=== PATIENT | female | born 1960 | race Caucasian/White ===

== ENCOUNTER 2016-11-13 10:56 | Emergency (ER) | payer OTHER ==
[~2016-11-13] VITALS: Ht 165.1 cm; Wt 71.5 kg
[2016-11-13 11:04] VITALS: BP 154/88; PULSE 72; RESP 16; TEMP 98.7; O2SAT 100
[2016-11-13] MEDS ORDERED: CITA20TA4 PO (11:15)
[2016-11-13] MEDS ORDERED: SODIUM CHLOR 0.9% 1000 ML INJ 1,000 ML IV SCH (11:35)
--- NOTE | 2016-11-13 11:44 | PD ---
HPI Chief Complaint: Abdominal Pain Time Seen by Provider: 11:22 Travel History International Travel<30 days: No Contact w/Intl Traveler<30days: No Traveled to known affect area: No History of Present Illness HPI The patient is a 56-year-old female who presents to the emergency department from urgent care for evaluation of abdominal pain and possible appendicitis. The patient states over the weekend she had nausea, vomiting, and diarrhea. The patient states that the nausea, vomiting, and diarrhea did improve, however, she continued to have a decreased appetite. She knows very little intake secondary to her symptoms over the weekend. She now complains of a foul taste in the mouth, lower abdominal pain with occasional cramping, and foul-smelling gas. She does note a history of 2 previous sections. She denies any fever, has had some intermittent chills and sweats. She denies any acute nausea today but does note a foul taste in the mouth. The patient was evaluated in urgent care earlier today and referred to the emergency department for possible appendicitis. She denies any history of diverticulitis and denies any dysuria, frequency, or urgency. Symptoms are moderate, possibly exacerbated by recent viral infection, and there are no current alleviating factors. PFSH Past Medical History Psychiatric: Yes (mood disorder) ?: Not Tubal Ligation: Yes Past Surgical History Section: Yes Other Surgery: Yes (rotator cuff repair) Social History Alcohol Use: Yes Tobacco Use: No Substance Use: No Allergies-Medications (Allergen,Severity, Reaction): Coded Allergies: No Known Allergies (Unverified , 11/13/16) Reported Meds & Prescriptions Reported Meds & Active Scripts Active Reported Citalopram (Citalopram Hydrobromide) 20 Mg Tab 20 Mg PO DAILY Review of Systems Except as stated in HPI: all other systems reviewed are Neg General / Constitutional: No: Fever HENT: No: Lightheadedness Cardiovascular: No: Chest Pain or Discomfort Respiratory: No: Shortness of Breath Gastrointestinal: Positive: Nausea, Vomiting, Diarrhea, Abdominal Pain, Loss of Appetite Genitourinary: No: Dysuria Musculoskeletal: No: Myalgias, Arthralgias, Weakness Physical Exam Narrative GENERAL: Awake, alert, nontoxic-appearing 56 year-old female who appears her stated age and is in no acute respiratory distress. SKIN: Focused skin assessment warm/dry. HEAD: Atraumatic. Normocephalic. EYES: Pupils equal and round. No scleral icterus. No injection or drainage. ENT: No nasal bleeding or discharge. Mucous membranes pink and moist. NECK: Trachea midline. No JVD. CARDIOVASCULAR: Regular rate and rhythm. No murmur appreciated. RESPIRATORY: No accessory muscle use. Clear to auscultation. Breath sounds equal bilaterally. GASTROINTESTINAL: Abdomen soft, tender palpation left lower quadrant and right lower quadrant. Negative Blanchard's. Negative McBurney's. MUSCULOSKELETAL: No obvious deformities. No clubbing. No cyanosis. No edema. NEUROLOGICAL: Awake and alert. No obvious cranial nerve deficits. Motor grossly within normal limits. Normal speech. PSYCHIATRIC: Appropriate mood and affect; insight and judgment normal. Data Data Last Documented VS Vital Signs Date Time Temp Pulse Resp B/P (MAP) Pulse Ox O2 Delivery O2 Flow Rate FiO2 11/13/16 12:02 96 11/13/16 11:04 98.7 72 16 154/88 (110) Orders Orders Complete Blood Count With Diff (11/13/16 11:35) Comprehensive Metabolic Panel (11/13/16 11:35) Lipase (11/13/16 11:35) Lactic Acid (11/13/16 11:35) Urinalysis - C+S If Indicated (11/13/16 11:35) Ct Abd/Pel W/O Iv Contrast (11/13/16 11:35) Iv Access Insert/Monitor (11/13/16 11:35) Ecg Monitoring (11/13/16 11:35) Oximetry (11/13/16 11:35) Sodium Chlor 0.9% 1000 Ml Inj (Ns 1000 M (11/13/16 11:35) Sodium Chloride 0.9% Flush (Ns Flush) (11/13/16 11:45) Morphine Inj (Morphine Inj) (11/13/16 12:45) Ondansetron Inj (Zofran Inj) (11/13/16 12:45) Ciprofloxacin (Cipro) (11/13/16 12:45) Metronidazole (Flagyl) (11/13/16 12:45) Labs Laboratory Tests Test 11/13/16 12:00 White Blood Count 11.8 TH/MM3 Red Blood Count 3.97 MIL/MM3 Hemoglobin 11.7 GM/DL Hematocrit 35.3 % Mean Corpuscular Volume 88.8 FL Mean Corpuscular Hemoglobin 29.5 PG Mean Corpuscular Hemoglobin Concent 33.3 % Red Cell Distribution Width 12.2 % Platelet Count 275 TH/MM3 Mean Platelet Volume 7.3 FL Neutrophils (%) (Auto) 70.0 % Lymphocytes (%) (Auto) 17.8 % Monocytes (%) (Auto) 8.9 % Eosinophils (%) (Auto) 2.7 % Basophils (%) (Auto) 0.6 % Neutrophils # (Auto) 8.3 TH/MM3 Lymphocytes # (Auto) 2.1 TH/MM3 Monocytes # (Auto) 1.0 TH/MM3 Eosinophils # (Auto) 0.3 TH/MM3 Basophils # (Auto) 0.1 TH/MM3 CBC Comment DIFF FINAL Differential Comment Blood Urea Nitrogen 17 MG/DL Creatinine 0.65 MG/DL Random Glucose 85 MG/DL Total Protein 6.8 GM/DL Albumin 3.2 GM/DL Calcium Level 8.4 MG/DL Alkaline Phosphatase 92 U/L Aspartate Amino Transf (AST/SGOT) 14 U/L Alanine Aminotransferase (ALT/SGPT) 16 U/L Total Bilirubin 0.4 MG/DL Sodium Level 140 MEQ/L Potassium Level 3.3 MEQ/L Chloride Level 106 MEQ/L Carbon Dioxide Level 27.6 MEQ/L Anion Gap 6 MEQ/L Estimat Glomerular Filtration Rate 94 ML/MIN Lactic Acid Level 0.9 mmol/L Lipase 97 U/L MDM Medical Decision Making Medical Screen Exam Complete: Yes Emergency Medical Condition: Yes Medical Record Reviewed: Yes Interpretation(s) Laboratory Tests Test 11/13/16 12:00 White Blood Count 11.8 TH/MM3 Red Blood Count 3.97 MIL/MM3 Hemoglobin 11.7 GM/DL Hematocrit 35.3 % Mean Corpuscular Volume 88.8 FL Mean Corpuscular Hemoglobin 29.5 PG Mean Corpuscular Hemoglobin Concent 33.3 % Red Cell Distribution Width 12.2 % Platelet Count 275 TH/MM3 Mean Platelet Volume 7.3 FL Neutrophils (%) (Auto) 70.0 % Lymphocytes (%) (Auto) 17.8 % Monocytes (%) (Auto) 8.9 % Eosinophils (%) (Auto) 2.7 % Basophils (%) (Auto) 0.6 % Neutrophils # (Auto) 8.3 TH/MM3 Lymphocytes # (Auto) 2.1 TH/MM3 Monocytes # (Auto) 1.0 TH/MM3 Eosinophils # (Auto) 0.3 TH/MM3 Basophils # (Auto) 0.1 TH/MM3 CBC Comment DIFF FINAL Differential Comment Blood Urea Nitrogen 17 MG/DL Creatinine 0.65 MG/DL Random Glucose 85 MG/DL Total Protein 6.8 GM/DL Albumin 3.2 GM/DL Calcium Level 8.4 MG/DL Alkaline Phosphatase 92 U/L Aspartate Amino Transf (AST/SGOT) 14 U/L Alanine Aminotransferase (ALT/SGPT) 16 U/L Total Bilirubin 0.4 MG/DL Sodium Level 140 MEQ/L Potassium Level 3.3 MEQ/L Chloride Level 106 MEQ/L Carbon Dioxide Level 27.6 MEQ/L Anion Gap 6 MEQ/L Estimat Glomerular Filtration Rate 94 ML/MIN Lactic Acid Level 0.9 mmol/L Lipase 97 U/L Last Impressions Abdomen/Pelvis CT 11/13/16 1135 Signed Impressions: Service Date/Time: Sunday, November 13, 2016 12:01 - CONCLUSION: Long segment transverse colon distal one third circumferential bowel wall thickening with mild inflammatory changes in the pericolonic fat most consistent with a localized colitis Robin Ward MD Differential Diagnosis Differential diagnosis includes diverticulitis, appendicitis, partial small bowel obstruction, colitis, gastroenteritis, dehydration, electrolyte abnormality, ileus. Narrative Course IV was established, labs are drawn and sent, and the patient was placed on cardiac telemetry monitoring and continuous pulse oximetry monitoring. The patient was administered IV fluids, declined pain medication and antiemetics. Noncontrast CT of the abdomen and pelvis was ordered to evaluate for possible appendicitis/diverticulitis. Laboratory evaluation is essentially unremarkable , white count is minimally elevated. CT does reveal colitis of the transverse colon. The patient has no history of C. difficile. Patient was reevaluated at 12:40 PM, she was having abdominal cramping and pain. 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 She will be discharged home on Cipro, Flagyl, Bentyl, and [place]. She is advised to have clear liquid diet, advance as tolerated, work excuse for 2 days. Diagnosis Primary Impression: Colitis Patient Instructions: General Instructions Additional Instructions: Work excuse for 2 days. Clear liquid diet and advance as tolerated. Medications as directed. Return if symptoms worsen or progress. Follow-up with your primary physician. Please provide the patient a copy of her CT results and lab results at discharge. Med/Other Pt SpecificInfo: Prescription(s) given Scripts Hydrocodone-Acetaminophen ([place]) 5-325 mg Tab 1 TAB PO Q6H Y for PAIN, #12 TAB 0 Refills Prov: Idris Maravilla MD 11/13/16 Dicyclomine (Bentyl) 10 Mg Cap 10 MG PO QID for Bowel Management, #20 CAP 0 Refills Prov: Idris Maravilla MD 11/13/16 Metronidazole (Flagyl) 500 Mg Tab 500 MG PO BID for Infection for 7 Days, TAB 0 Refills Prov: Idris Maravilla MD 11/13/16 Ciprofloxacin (Cipro) 500 Mg Tab 500 MG PO BID for Infection for 7 Days, TAB 0 Refills Prov: Idris Maravilla MD 11/13/16 Disposition: 01 DISCHARGE HOME Condition: Stable Idris Maravilla MD Nov 13, 2016 11:44
[2016-11-13] MEDS ORDERED: SODIUM CHLORIDE 0.9% FLUSH 10 ML FLUSH IV FLUSH PRN (11:45)
[2016-11-13 12:02] VITALS: O2SAT 96
[2016-11-13 12:04] LABS: AUTOMATED NEUTROPHIL # 8.3 TH/MM3 (1.8-7.7); BASOPHIL # 0.1 TH/MM3 (0-0.2); BASOPHIL % 0.6 % (0.0-2.0); EOSINOPHIL # 0.3 TH/MM3 (0-0.4); EOSINOPHIL % 2.7 % (0.0-4.0); HEMATOCRIT 35.3 % (35.0-46.0); HEMO FLAGS DIFF FINAL; LYMPH % 17.8 % (9.0-44.0); LYMPHOCYTE # 2.1 TH/MM3 (1.0-4.8); MEAN CELL VOLUME 88.8 FL (80.0-100.0); MEAN CORPUSCULAR HEMOGLOBIN 29.5 PG (27.0-34.0); MEAN CORPUSCULAR HGB CONC 33.3 % (32.0-36.0); MONO % 8.9 % (0.0-8.0); PLATELET COUNT 275 TH/MM3 (150-450); RED BLOOD COUNT 3.97 MIL/MM3 (4.00-5.30); RED CELL DISTRIBUTION WIDTH 12.2 % (11.6-17.2); WHITE BLOOD COUNT 11.8 TH/MM3 (4.0-11.0)
[2016-11-13 12:15] LABS: CHLORIDE 106 MEQ/L (98-107); POTASSIUM 3.3 MEQ/L (3.5-5.1); SODIUM (NA) 140 MEQ/L (136-145)
[2016-11-13 12:19] LABS: ANION GAP 6 MEQ/L (5-15); BICARBONATE 27.6 MEQ/L (21.0-32.0); BLOOD UREA NITROGEN 17 MG/DL (7-18)
[2016-11-13 12:22] LABS: ALT (GPT) 16 U/L (10-53); AST (GOT) 14 U/L (15-37); GLOMERULAR FILTRATION RATE 94 ML/MIN (>89)
[2016-11-13 12:23] LABS: TOTAL BILIRUBIN ADULT 0.4 MG/DL (0.2-1.0)
[2016-11-13 12:24] LABS: ALKALINE PHOSPHATASE 92 U/L (45-117)
--- NOTE | 2016-11-13 12:30 | RADRPT ---
EXAM DATE/TIME: 11/13/2016 12:01 [facility] COMPARISON: No previous studies available for comparison. INDICATIONS : Right lower quadrant pain. ORAL CONTRAST: No oral contrast ingested. RADIATION DOSE: 11.77 CTDIvol (mGy) MEDICAL HISTORY : None SURGICAL HISTORY : Tubal ligation. section. ENCOUNTER: Initial ACUITY: 3 days PAIN SCALE: 1/10 LOCATION: Right lower quadrant TECHNIQUE: Volumetric scanning of the abdomen and pelvis was performed. Using automated exposure control and ad justment of the mA and/or kV according to patient size, radiation dose was kept as low as reasonably achievable to obtain optimal diagnostic quality images. DICOM format image data is available electro nically for review and comparison. FINDINGS: LOWER LUNGS: The visualized lower lungs are clear. LIVER: Homogeneous density without lesion. There is no dilation of the biliary tree. No calcified gallston es. Gallbladder is seen as a normal structure without wall thickening or stones SPLEEN: Normal size without lesion. PANCREAS: Within normal limits. KIDNEYS: Normal in size and shape. There is no mass, stone, or hydronephrosis. ADRENAL GLANDS: Within normal limits. VASCULAR: There is no aortic aneurysm. BOWEL/MESENTERY: There is circumferential long segment bowel wall thickening of the distal one third of the transverse colon and left upper quadrant with some minimal inflammatory changes in the pericolonic fat. Finding s are consistent with a colitis ABDOMINAL WALL: Within normal limits. RETROPERITONEUM: There is no lymphadenopathy. BLADDER: No wall thickening or mass. REPRODUCTIVE: Within normal limits. INGUINAL: There is no lymphadenopathy or hernia. MUSCULOSKELETAL: Within normal limits for patient age. Facet arthritic changes lower lumbar spine CONCLUSION: Long segment transverse colon distal one third circumferential bowel wall thickening with mild inflam matory changes in the pericolonic fat most consistent with a localized colitis Robin Ward MD on November 13, 2016 at 12:23 Board Certified Radiologist. This report was verified electronically.
[2016-11-13] MEDS ORDERED: MORPHINE SULFATE 4 MG/ML INJ IV PUSH ONE (12:45)
[2016-11-13] MEDS ORDERED: metroNIDAZOLE 500 MG TAB PO ONE (12:45)
[2016-11-13] MEDS ORDERED: ONDANSETRON HCL 4 MG/2 ML VIAL IV PUSH ONE (12:45)
[2016-11-13] MEDS ORDERED: CIPROFLOXACIN 500 MG TAB PO ONE (12:45)
[2016-11-13] MEDS ORDERED: DICY10 PO (12:49)
[2016-11-13] MEDS ORDERED: CIPR-9 PO (12:49)
[2016-11-13] MEDS ORDERED: METR-1 PO (12:49)
[2016-11-13] MEDS ORDERED: NORC5TAB PO (12:49)
[2016-11-13 13:10] VITALS: BP 131/86; PULSE 78; RESP 17; O2SAT 100
== END 2016-11-13 13:47 | disposition home or self-care (01) ==
LOC: PHED 10:56
DX: K52.9 Noninfective gastroenteritis and colitis, unspecified (principal)
CPT/HCPCS: 74176; 80053; 83605; 83690; 85025; 96361; 96374; 96375; 99285; J2270; J2405; J7030